=== PATIENT | female | born 1975 | race Caucasian/White ===

== ENCOUNTER 2018-04-22 07:58 | Day surgery (SDC) | payer MEDICAID ==
[2018-04-22] VITALS (10 sets, daily range): BP systolic 98–130; BP diastolic 54–82; PULSE 58–83; RESP 18–28; Ht 160 cm; Wt 70.1 kg
[~2018-04-22] VITALS: Ht 160 cm; Wt 70.1 kg
[2018-04-22] MEDS ORDERED: CEFAZOLIN 2 GM/50 ML (PMX) 50 ML IVPB ONE (10:00)
[2018-04-22] MEDS ORDERED: SOD CHLORIDE 0.9% 1,000 ML IV ONE (10:00)
[2018-04-22] MEDS ORDERED: FENTAnyl 50 MCG/ML VIAL ONE (12:58)
[2018-04-22] MEDS ORDERED: CEFAZOLIN 1 GM INJ ONE (12:58)
[2018-04-22] MEDS ORDERED: PROPOFOL 20 ML ONE (12:58)
[2018-04-22] MEDS ORDERED: MIDAZOLAM 1 MG/ML 2 ML INJ ONE (12:58)
[2018-04-22] MEDS ORDERED: DIPHENHYDRAMINE 50 MG INJ IV PRN (13:30)
[2018-04-22] MEDS ORDERED: MEPERIDINE 25 MG INJ IV PRN (13:30)
[2018-04-22] MEDS ORDERED: ONDANSETRON 4 MG INJ IV PRN (13:30)
[2018-04-22] MEDS ORDERED: OXYCODONE/ACETAMINOPHEN (5/325) TAB PO PRN (13:30)
[2018-04-22] MEDS ORDERED: HYDROmorphONE 1 MG/5 ML IV SYRINGE IV PRN ×3 (13:30)
[2018-04-22] MEDS ORDERED: LABETALOL HCL 20MG INJ IV PRN (13:30)
[2018-04-22] MEDS ORDERED: METOCLOPRAMIDE 10 MG INJ IV PRN (13:30)
[2018-04-22] MEDS ORDERED: FENTAnyl 50 MCG/ML VIAL IV PRN ×3 (13:30)
[2018-04-22] MEDS ORDERED: EPHEDrine SULFATE 50 MG/5 ML SYG IV PRN (13:30)
--- NOTE | 2018-04-22 13:52 | PREAC ---
Date/Time of Note Date/Time of Note DATE: 04/22/18 TIME: 13:49 Anesthesia Eval and Record Evaluation Time Pre-Procedure Interview DATE: 04/22/18 TIME: 13:49 Age 42 Sex female NPO: 8 hrs Preoperative diagnosis Right Breast Mass Planned procedure Right Breast Needle Loc partial Mastectomy Past Medical History Past Medical History: None Surgery & Anesthesia Issues No known issue Meds Anticoagulation: No Beta Martha within 24 hr: No Reason Beta Martha not given: Pt. not on B-Martha No Active Prescriptions or Reported Meds Current Medications Sodium Chloride 1,000 ml @ 75 mls/hr [id number] ONCE IV ; Start 04/22/18 at 10:00 ; Stop 04/22/18 at 23:19 Hydromorphone HCl (Dilaudid) 0.2 mg PACU PRN IV MILD PAIN LEVEL 1-3; Start at 13:30; Status UNV Hydromorphone HCl (Dilaudid) 0.4 mg PACU PRN IV MODERATE PAIN LEVEL 4-6; Start 04/22/18 at 13:30; Status UNV Hydromorphone HCl (Dilaudid) 0.6 mg PACU PRN IV SEVERE PAIN LEVEL 7-10; Start 04/22/18 at 13:30; Status UNV Fentanyl (Sublimaze) 25 mcg PACU ORDER PRN IV MILD PAIN LEVEL 1-3; Start at 13:30; Status UNV Fentanyl (Sublimaze) 50 mcg PACU ODER PRN IV MODERATE PAIN LEVEL 4-6; Start at 13:30; Status UNV Fentanyl (Sublimaze) 75 mcg PACU ORDER PRN IV SEVERE PAIN LEVEL 7-10; Start at 13:30; Status UNV Oxycodone/ Acetaminophen (Percocet (5/ 325)) 1 tab PACU ORDER PRN PO PAIN LEVEL 1-5; Start 04/22/18 at 13:30; Status UNV Ondansetron HCl (Zofran Inj) 4 mg PACU ORDER PRN IV NAUSEA AND/OR VOMITING; Start 04/22/18 at 13:30; Status UNV Metoclopramide HCl (Reglan) 10 mg PACU ORDER PRN IV NAUSEA AND/OR VOMITING; Start 04/22/18 at 13:30; Status UNV Labetalol HCl (Labetalol) 5 mg PACU ORDER PRN IV HIGH BLOOD PRESSURE; Start at 13:30; Status UNV Ephedrine Sulfate 5 mg PACU ORDER PRN IV MAP LESS THAN 60; Start 04/22/18 at 13 :30; Status UNV Meperidine HCl (Demerol) 25 mg PACU ORDER PRN IV POST-OP RIGORS; Start at 13:30; Status UNV Diphenhydramine HCl (Benadryl) 25 mg PACU ORDER PRN IV PRURITUS; Start at 13:30; Status UNV Meds reviewed: Yes Allergies Coded Allergies: No Known Allergy (Unverified , 04/22/18) Allergies Reviewed: Yes Labs/Studies Labs Reviewed: Reviewed by anesthesiologist test: Negative Studies: ECG (n/a), CXR (n/a) Pre-procedure Exam Last vitals Vital Signs Date Time Temp Pulse Resp B/P (MAP) Pulse Ox O2 Delivery O2 Flow Rate FiO2 04/22/18 12:24 97.7 83 18 130/82 (98) 100 Room Air Airway: Adequate mouth opening, Adequate thyromental dist Mallampati: Mallampati II Teeth: Normal Lung: Normal Heart: Normal ASA Physical Status ASA physical status: 2 Emergency: None Planned Anesthetic General/MAC: LMA Planned Pain Management Parenteral pain med Pre-operative Attestations Prior to commencing anesthesia and surgery, the patient was re-evaluated, there was verification of: *The patient's identity *The results of appropriate recent lab work and preoperative vital signs *The above evaluation not changing prior to induction *Anesthetic plan, risk benefits, alternative and complications discussed with patient/family; questions answered; patient/family understands, accepts and wishes to proceed. ELANA JETT MD Apr 22, 2018 13:52
[2018-04-22] MEDS ORDERED: PHENYLephrine (100 MCG/ML) 5ML SYG ONE (14:34)
[2018-04-22] MEDS ORDERED: ONDANSETRON 4 MG INJ ONE (14:41)
[2018-04-22] MEDS ORDERED: METOCLOPRAMIDE 10 MG INJ ONE (14:41)
[2018-04-22] MEDS ORDERED: SUCCINYLCHOLINE CHLORIDE 100 MG/5 ML SYG IV ONE (14:41)
[2018-04-22] MEDS ORDERED: DEXAMETHASONE 4 MG/ML 1 ML INJ ONE (14:42)
[2018-04-22] MEDS ORDERED: HYDROCODONE/APAP (7.5/325) TAB PO PRN (15:00)
--- NOTE | 2018-04-22 15:00 | SIPON ---
Date/Time of Note Date/Time of Note DATE: 04/22/18 TIME: 14:59 Operative Report Preoperative Diagnosis Right breast tumor Postoperative Diagnosis Same Operation/Procedure Performed Needle directed right partial mastectomy Surgeon see signature line family services assistant Dr Fernandez Anesthesia: general Estimated blood loss: 10 - 50 ml's Transfusion Required none Specimen Right partial mastectomy specimen Grafts/Implants none Complications none ACE WALKER MD Apr 22, 2018 15:00
--- NOTE | 2018-04-22 15:09 | PAC ---
Date/Time of Note Date/Time of Note DATE: 04/22/18 TIME: 15:09 Post-Anesthesia Notes Post-Anesthesia Note Last documented vital signs Vital Signs Date Time Temp Pulse Resp B/P (MAP) Pulse Ox O2 Delivery O2 Flow Rate FiO2 04/22/18 15:24 97.7 83 18 130/82 (98) 100 Room Air Activity: WNL Respiratory function: WNL Cardiovascular function: WNL Mental status: Baseline Pain reasonably controlled: Yes Hydration appropriate: Yes Nausea/Vomiting absent: Yes ELANA JETT MD Apr 22, 2018 15:09
--- NOTE | 2018-04-22 18:27 | OPR ---
DATE OF OPERATION: 04/22/2018 PREOPERATIVE DIAGNOSIS: Phyllodes tumor, right breast. POSTOPERATIVE DIAGNOSIS: Phyllodes tumor, right breast. OPERATION PERFORMED: Needle-directed right breast excisional biopsy. ANESTHESIA: General. ANESTHESIOLOGIST: ____. SURGEON: Edgar Valle MD WE[employer]ESS OPERATOR HELPER OFFSET: Dr. Fernandez. INDICATIONS FOR PROCEDURE: The patient is a 42-year-old female who underwent surveillance mammography and was found to have a suspicious area in her right breast. Subsequent ultrasound confirmed a mass. Biopsy revealed findings consistent with probable phyllodes tumor and full excision was recommended. The patient consented and was scheduled for surgery. DESCRIPTION OF PROCEDURE: On the morning of surgery, the patient presented to [facility] where she underwent localization of the lesion performed by attending radiologist, Dr. Damien Vega. Subsequently, she was brought to the operating theater and placed under general anesthesia. The right breast was prepped and draped in the usual sterile fashion. A curvilinear incision was then made in the right breast in the region of the previously placed localization wire. Subcutaneous tissue was dissected with cautery. The skin edges were elevated with skin hooks and wide circumferential dissection of the tissue associated with the wire then took place, taking great care to ensure adequate margin. The specimen was then transected, oriented, and sent for radiographic confirmation of capture. Capture was confirmed. The specimen was then sent for permanent pathologic analysis. The wound was irrigated. Minimal residual bleeding was controlled with cautery. The skin was then reapproximated with a deep dermal layer of 4-0 Vicryl sutures in interrupted fashion followed by final skin approximation with 5-0 PDS sutures in subcuticular fashion, and benzoin and Steri-Strips were applied. The patient tolerated the procedure well. The estimated blood loss was 20 mL. There were no complications and the patient was transported in stable condition to the recovery room where circumferential compression dressing was applied. Dictated By: EDGAR WOOD/AMNA Conf#: [id number] DID#: [id number]
--- NOTE | 2018-04-25 21:23 | RADRPT ---
Vent Rate: 83 bpm RR Interval: 0 msec KS Interval: 144 msec QRS Duration: 86 msec QT Interval: 394 msec QTC Interval: 462 msec P-R-T [place]: 33 - 13 - 20 degrees Normal sinus rhythm Normal ECG Electronically Signed By: Eric Amaya [id number]
== END 2018-04-22 16:33 | disposition home or self-care (01) ==
LOC: SDS 07:58
PROVIDERS: ATTEND Surgery Surgical Oncology
DX: D24.1 Benign neoplasm of right breast (principal)
CPT/HCPCS: 19301; 71045; 88307; 93005; J0690; J1100; J2250; J2370; J2405; J2765; J3010; Z7512; Z7610